=== PATIENT | male | born 1945 | race Caucasian/White ===

== ENCOUNTER 2017-03-26 02:06 | Emergency (ER) | payer MEDICARE, MEDICAID ==
[~2017-03-26] VITALS: Ht 175.3 cm; Wt 71.2 kg
--- NOTE | 2017-03-26 02:10 | NUR ---
TO BED 1 BIB PARAMEDICS C/O DIZZINESS. PT AAOX4 NO ACUTE DISTRESS NOTED, RESP EVEN AND UNLABORED. PLACE PT ON CARDIAC MONITORING, CONTINUOUS POX. PENDING ER MD HART.
--- NOTE | 2017-03-26 02:19 | NUR ---
LOUIS LEE AT BEDSIDE TO HAILEY RODRIGUEZ.
[2017-03-26] MEDS ORDERED: ONDANSETRON HCL/PF 4 MG/2 ML VIAL IVP ONE (02:30)
[2017-03-26] MEDS ORDERED: MECLIZINE HCL 25 MG TABLET PO ONE (02:30)
[2017-03-26] MEDS ORDERED: IV NS 0.9% 500 ML BAG IV ONE (02:30)
[2017-03-26] MEDS ORDERED: LORAZEPAM INJ 2 MG/ML VIAL IV ONE (02:30)
[2017-03-26] MEDS ORDERED: ONDANSETRON HCL/PF 4 MG/2 ML VIAL ONE (02:44)
[2017-03-26] MEDS ORDERED: LORAZEPAM INJ 2 MG/ML VIAL ONE (02:45)
[2017-03-26] MEDS ORDERED: MECLIZINE HCL 25 MG TABLET ONE (02:45)
[2017-03-26 02:48] LABS: BASOPHILS % (AUTO) 0.3 % (0.0-2.0); EOSINOPHILS # (AUTO) 0.1 /CMM (0.0-0.7); EOSINOPHILS % (AUTO) 2.2 % (0.0-6.0); HEMATOCRIT 36 % (39-51); HEMOGLOBIN 11.8 g/dL (13.5-17.5); LYMPHOCYTES # (AUTO) 1.6 /CMM (0.8-4.8); MEAN CORPUSCULAR HEMOGLOBIN 31 PG (26.0-33.0); MEAN CORPUSCULAR HGB CONC 33 g/dl (31.0-36.0); MEAN CORPUSCULAR VOLUME 93 fL (80-96); MONOCYTES # (AUTO) 0.7 /CMM (0.1-1.30); MONOCYTES % (AUTO) 11.6 % (2.0-12.0); NEUTROPHILS # (AUTO) 3.7 /CMM (1.8-8.9); NEUTROPHILS % (AUTO) 59.9 % (43.0-81.0); PLATELET COUNT (AUTO) 195 /CMM (150-450); RDW COEFFICIENT OF VARIATION 15.8 (11.5-15.0); RED BLOOD CELL COUNT(AUTO) 3.83 MIL/uL (4.5-6.0); WHITE BLOOD COUNT (AUTO) 6.1 K/uL (4.3-11.0)
--- NOTE | 2017-03-26 02:54 | NUR ---
PT MEDICATED BY RN PER ER MD ORDER.
[2017-03-26 03:07] LABS: TROPONIN I < 0.017 ng/mL (0.00-0.056)
[2017-03-26 03:08] LABS: ALANINE AMINOTRANSFERASE 34 U/L (12-78); ALBUMIN 3.7 g/dL (3.4-5.0); ALKALINE PHOSPHATASE 63 U/L (46-116); ASPARTATE AMINOTRANSFERASE 17 U/L (15-37); BILIRUBIN,TOTAL 0.3 mg/dL (0.2-1.0); CALCIUM, SERUM 9.4 mg/dL (8.5-10.1); CARBON DIOXIDE 27 mmol/L (21-32); CHLORIDE 104 mmol/L (98-107); CREATININE 0.8 mg/dL (0.6-1.3); GLUCOSE 126 mg/dL (74-106); POTASSIUM 3.8 mmol/L (3.5-5.1); SODIUM SERUM 142 mmol/L (136-145); TOTAL PROTEIN, SERUM 7.2 g/dL (6.4-8.2); UREA NITROGEN, BLOOD 19 mg/dL (7-18)
--- NOTE | 2017-03-26 04:13 | NUR ---
LOUIS LEE AT BEDSIDE TO RE-EVAL PT. ER MD SPOKE TO PT AND PT FAMILY.
--- NOTE | 2017-03-26 04:29 | NUR ---
URINE SAMPLE COLLECTED AND SENT TO LAB.
[2017-03-26 05:12] LABS: APPEARANCE,URINE CLEAR (CLEAR); BILIRUBIN,URINE NEGATIVE (NEGATIVE); BLOOD, URINE NEGATIVE Ery/uL (NEGATIVE); COLOR,URINE YELLOW (YELLOW); KETONES,URINE NEGATIVE (NEGATIVE); LEUKOCYTE ESTERASE ,URINE NEGATIVE (NEGATIVE); NITRITE, URINE NEGATIVE (NEGATIVE); PROTEIN,URINE NEGATIVE (NEGATIVE); UGLUCOSE NEGATIVE (NEGATIVE); UROBILINOGEN,URINE 0.2 EU/dL (0.2)
--- NOTE | 2017-03-26 05:56 | NUR ---
IV removed. Catheter intact and site benign. Pressure and 4x4 applied to site. No bleeding noted. Patient discharged to home in stable condition. Written and verbal after care instructions given. Patient verbalizes understanding of instruction. ambulatory with a steady gait noted. pt at bedside to take pt home.
[2017-03-26 05:57] VITALS: BP 113/61
== END 2017-03-26 05:58 | disposition home or self-care (01) ==
LOC: ER 02:09
DX: R42 Dizziness and giddiness (principal); R53.1 Weakness; C67.9 Malignant neoplasm of bladder, unspecified; I10 Essential (primary) hypertension; E11.9 Type 2 diabetes mellitus without complications
CPT/HCPCS: 36415; 80048; 80076; 81001; 84484; 85025; 93005; 96374; 96375; 99285; A4606; J2060; J2405; J7040; J8597; 81000-TC; Z7610

== ENCOUNTER → 2017-05-10 | Outpatient (CLI) | payer MEDICARE, OTHER | LOC: NM 08:06 | PROVIDERS: ATTEND Internal Medicine Cardiovascular Disease | DX: I25.10 Atherosclerotic heart disease of native coronary artery without angina pectoris (principal); Z95.5 Presence of coronary angioplasty implant and graft | CPT/HCPCS: 78452; A9502 ==

== ENCOUNTER 2018-10-26 10:09 | Outpatient (CLI) | payer MEDICARE, OTHER | END 2018-10-26 23:59 | disposition home or self-care (01) | LOC: CARD 10:09 | PROVIDERS: ATTEND Internal Medicine Cardiovascular Disease | DX: I70.293 Other atherosclerosis of native arteries of extremities, bilateral legs (principal); I10 Essential (primary) hypertension; E11.9 Type 2 diabetes mellitus without complications ==

== ENCOUNTER 2018-11-08 08:59 | Outpatient (CLI) | payer MEDICAID, MEDICARE ==
[2018-11-08 09:47] LABS: CALCIUM, SERUM 9.4 mg/dL (8.5-10.1); CARBON DIOXIDE 29 mmol/L (21-32); CHLORIDE 101 mmol/L (98-107); CREATININE 0.8 mg/dL (0.6-1.3); GLUCOSE 153 mg/dL (74-106); POTASSIUM 5.3 mmol/L (3.5-5.1); SODIUM SERUM 140 mmol/L (136-145); UREA NITROGEN, BLOOD 16 mg/dL (7-18)
[2018-11-08 09:48] LABS: BASOPHILS % (AUTO) 0.4 % (0.0-2.0); HEMATOCRIT 38 % (39-51); HEMOGLOBIN 12.6 g/dL (13.5-17.5); LYMPHOCYTES # (AUTO) 1.7 /CMM (0.8-4.8); LYMPHOCYTES % (AUTO) 31.8 % (20.0-44.0); MEAN CORPUSCULAR HGB CONC 33 g/dl (31.0-36.0); MEAN CORPUSCULAR VOLUME 95 fL (80-96); MONOCYTES # (AUTO) 0.6 /CMM (0.1-1.30); MONOCYTES % (AUTO) 11.3 % (2.0-12.0); NEUTROPHILS % (AUTO) 54.5 % (43.0-81.0); PLATELET COUNT (AUTO) 194 /CMM (150-450); RED BLOOD CELL COUNT(AUTO) 3.98 MIL/uL (4.5-6.0); WHITE BLOOD COUNT (AUTO) 5.5 K/uL (4.3-11.0)
[2018-11-08 10:05] LABS: CHOLESTEROL 155 mg/dL (<200); HDL CHOLESTEROL 38 mg/dL (40-60); LDL 82 mg/dL (0-99); THYROID STIMULATING HORMONE 1.358 uIU/mL (0.358-3.74); TRIGLYCERIDES 231 mg/dL (30-150)
[2018-11-08] MEDS ORDERED: IOHEXOL-350 100 ML VIAL IV ONE (10:58)
[2018-11-08] MEDS ORDERED: CT SWABBABLE VALVE TRANS SET 1 EA INFUS.SET MC ONE (10:59)
[2018-11-08] MEDS ORDERED: IV NS 0.9% 250 ML IV ONE (10:59)
== END 2018-11-08 23:59 | disposition home or self-care (01) ==
LOC: CT 08:59
PROVIDERS: ATTEND Internal Medicine Cardiovascular Disease
DX: I70.8 Atherosclerosis of other arteries (principal); I70.203 Unspecified atherosclerosis of native arteries of extremities, bilateral legs
CPT/HCPCS: 36415; 75635; 80048; 80061; 83036; 84443; 85025; J7050; Q9967

== ENCOUNTER 2018-11-15 13:45 | Outpatient (CLI) | payer MEDICARE, OTHER | END 2018-11-15 23:59 | disposition home or self-care (01) | LOC: VASLAB 13:45 | PROVIDERS: ATTEND Surgery Vascular Surgery | DX: I73.9 Peripheral vascular disease, unspecified (principal); I25.10 Atherosclerotic heart disease of native coronary artery without angina pectoris; I10 Essential (primary) hypertension; Z95.5 Presence of coronary angioplasty implant and graft; Z87.891 Personal history of nicotine dependence; E11.9 Type 2 diabetes mellitus without complications; Z79.84 Long term (current) use of oral hypoglycemic drugs; E78.5 Hyperlipidemia, unspecified | CPT/HCPCS: G0463 ==

== ENCOUNTER 2019-03-13 11:26 | Outpatient (CLI) | payer MEDICARE | END 2019-03-13 23:59 | disposition home or self-care (01) | LOC: CARD 11:26 | PROVIDERS: ATTEND Internal Medicine Cardiovascular Disease | DX: I65.23 Occlusion and stenosis of bilateral carotid arteries (principal); I10 Essential (primary) hypertension; E11.9 Type 2 diabetes mellitus without complications; Z85.51 Personal history of malignant neoplasm of bladder | CPT/HCPCS: 93880-TC ==

== ENCOUNTER 2019-04-07 12:03 | Outpatient (CLI) | payer MEDICARE, MEDICAID ==
[~2019-04-07] VITALS: Ht 160 cm; Wt 72.6 kg
[2019-04-07] MEDS ORDERED: IV NS 0.9% 250 ML IV ONE ×2 (12:40→13:47)
[2019-04-07] MEDS ORDERED: IOHEXOL-350 100 ML VIAL IV ONE ×2 (12:40→13:47)
[2019-04-07 13:00] LABS: CALCIUM, SERUM 9.2 mg/dL (8.5-10.1); CREATININE 0.8 mg/dL (0.6-1.3)
[2019-04-07] MEDS ORDERED: NITROGLYCERIN 4.9 GM SPRAY SL ONE (13:00)
[2019-04-07] MEDS ORDERED: METOPROLOL TARTRATE INJ 5 MG/5 ML AMPUL ONE ×2 (13:01→13:47)
[2019-04-07] MEDS: METOPROLOL TARTRATE INJ 5 MG/5 ML AMPUL IVP PRN ×4 (13:14→13:49)
[2019-04-07] MEDS ORDERED: NITROGLYCERIN 0.4 MG/TAB BOTTLE ONE (13:21)
[2019-04-07 13:49] VITALS: BP 134/65
== END 2019-04-07 23:59 | disposition home or self-care (01) ==
LOC: CT 12:03
PROVIDERS: ATTEND Internal Medicine Cardiovascular Disease
DX: I10 Essential (primary) hypertension (principal); I49.9 Cardiac arrhythmia, unspecified
CPT/HCPCS: 36415; 75574; 80048; J3490 ×2; J7050 ×2; Q9967 ×2

== ENCOUNTER 2019-04-11 09:44 | Outpatient (CLI) | payer MEDICARE, MEDICAID ==
[2019-04-11] MEDS ORDERED: REGADENOSON 0.4 MG/5 ML DISP.SYRIN IVP ONE (10:30)
== END 2019-04-11 23:59 | disposition home or self-care (01) ==
LOC: NM 09:44
PROVIDERS: ATTEND Internal Medicine Cardiovascular Disease
DX: M79.642 Pain in left hand (principal)
CPT/HCPCS: 78452; 93971; A9502; J2785

== ENCOUNTER 2019-04-18 13:15 | Outpatient (CLI) | payer MEDICARE, MEDICAID | END 2019-04-18 23:59 | disposition home or self-care (01) | LOC: VASLAB 13:15 | PROVIDERS: ATTEND Surgery Vascular Surgery | DX: I65.21 Occlusion and stenosis of right carotid artery (principal) | CPT/HCPCS: G0463 ==

== ENCOUNTER 2022-01-13 01:15 | Inpatient (IN) | payer MEDICARE, OTHER ==
[~2022-01-13] VITALS: Ht 160 cm; Wt 66.7 kg
[2022-01-13] MEDS ORDERED: ASPIRIN 325 MG TABLET ONE (01:45)
[2022-01-13] MEDS ORDERED: predniSONE 20 MG TABLET ONE (01:49)
--- NOTE | 2022-01-13 01:50 | NUR ---
ALONSO #18G S/K BLOOD COLLECTED AND SENT TO LAB
[2022-01-13] MEDS ORDERED: ALBUTEROL FS 2.5 MG/3 ML VIAL.NEB ONE (01:51)
[2022-01-13] MEDS ORDERED: IPRATROPIUM NEB FS 0.5 MG/2.5 ML AMPUL.NEB ONE (01:51)
--- NOTE | 2022-01-13 01:53 | NUR ---
RT AT BEDSIDE FOR BREATHING TX
--- NOTE | 2022-01-13 01:55 | NUR ---
EMT AT PT'S BEDSIDE FOR EKG
[2022-01-13] MEDS ORDERED: predniSONE 20 MG TABLET PO ONE (02:00)
[2022-01-13] MEDS ORDERED: ASPIRIN 325 MG TABLET PO ONE (02:00)
[2022-01-13] MEDS ORDERED: IPRATROPIUM NEB FS 0.5 MG/2.5 ML AMPUL.NEB NEB ONE (02:00)
[2022-01-13] MEDS ORDERED: ALBUTEROL FS 2.5 MG/3 ML VIAL.NEB NEB ONE (02:00)
--- NOTE | 2022-01-13 02:20 | NUR ---
POLITICAL SCIENCE FACULTY MEMBER AT PT'S BEDSIDE
[2022-01-13 02:23] LABS: BASOPHILS % (AUTO) 0.2 % (0.0-2.0); EOSINOPHILS % (AUTO) 1.4 % (0.0-6.0); HEMATOCRIT 35 % (39-51); HEMOGLOBIN 11.4 g/dL (13.5-17.5); LYMPHOCYTES # (AUTO) 1.6 K/uL (0.8-4.8); LYMPHOCYTES % (AUTO) 26.7 % (20.0-44.0); MEAN CORPUSCULAR HGB CONC 33 g/dl (31.0-36.0); MEAN CORPUSCULAR VOLUME 95 fL (80-96); MONOCYTES # (AUTO) 0.7 K/uL (0.1-1.30); MONOCYTES % (AUTO) 12.1 % (2.0-12.0); NEUTROPHILS # (AUTO) 3.6 K/uL (1.8-8.9); NEUTROPHILS % (AUTO) 59.6 % (43.0-81.0); PLATELET COUNT (AUTO) 255 K/uL (150-450); RED BLOOD CELL COUNT(AUTO) 3.64 MIL/uL (4.5-6.0)
[2022-01-13 02:35] LABS: CALCIUM, SERUM 9.3 mg/dL (8.5-10.1); CARBON DIOXIDE 24 mmol/L (21-32); CHLORIDE 91 mmol/L (98-107); CREATININE 0.8 mg/dL (0.6-1.3); GLUCOSE 168 mg/dL (74-106); POTASSIUM 3.8 mmol/L (3.5-5.1); SODIUM SERUM 122 mmol/L (136-145); UREA NITROGEN, BLOOD 12 mg/dL (7-18)
--- NOTE | 2022-01-13 03:19 | NUR ---
COVID ANTIGEN SWAB COLLECTED AND SENT TO LAB
[2022-01-13] MEDS ORDERED: ONDANSETRON HCL/PF 4 MG/2 ML VIAL IVP PRN (04:00)
[2022-01-13] MEDS ORDERED: MAGNESIUM HYDROXIDE 30 ML UDC PO PRN (04:00)
[2022-01-13] MEDS ORDERED: MAG HYDROX/AL HYDROX/SIMETH 30 ML UDC PO PRN (04:00)
[2022-01-13] MEDS ORDERED: Z GUARD REMEDY 4 OZ OINT TP PRN (04:00)
[2022-01-13] MEDS ORDERED: IPRATROPIUM NEB FS 0.5 MG/2.5 ML AMPUL.NEB NEB PRN (04:00)
[2022-01-13] MEDS ORDERED: ALBUTEROL FS 2.5 MG/3 ML VIAL.NEB NEB PRN (04:00)
[2022-01-13] MEDS ORDERED: ZOLPIDEM TARTRATE 5 MG TABLET PO PRN (04:00)
--- NOTE | 2022-01-13 05:26 | NUR ---
TOTAL URINE OUTPUT 1550ML VIA URINAL
--- NOTE | 2022-01-13 07:43 | NUR ---
GPT BED 323-2
--- NOTE | 2022-01-13 07:57 | NUR ---
REPORT GIVEN TO DESHAWN FLOREZ OF TELE UNIT
--- NOTE | 2022-01-13 08:15 | NUR ---
RN NOTE PATIENT WAS TRANSFERRED FROM ER PATIENT CAME TO [facility] VIA GURNEY WITH NO SIGNS OF DISTRESS, REPORT RECEIVED FROM ER NURSE. V/S TAKEN, STABLE AND RECORDED. SKIN ASSESSMENT DONE, BRUISE ON RIGHT HAND, PICTURE TAKEN. BELONGING LIST CHECKED. PATIENT ORIENTED TO ROOM SET UP AND EDUCATED PATIENT ON THE USE OF CALL LIGHT. PATIENT AWAKE IN BED RESTING. A/O X4. NO PAIN NOTED AT THIS TIME. ON 2L OXYGEN VIA NC, NO DISTRESS OR SHORTNESS OF BREATH NOTED. IV ACCESS LAC #18G, INTACT, PATENT AND FLUSHING WELL. FALL AND SAFETY MEASURES IN PLACE, BED ALARM ON, BED IN LOW AND LOCK POSITION, CALL LIGHT AND TABLE WITHIN EASY REACH, SIDE RAILS UP X2. WILL CONTINUE TO MONITOR.
[2022-01-13] MEDS: LEVOFLOXACIN 500 MG /D5W 100ML 500 MG in PREMIX 1 EA IV SCH (09:33)
[2022-01-13] MEDS ORDERED: ATOR40TA PO (10:27)
[2022-01-13] MEDS ORDERED: ERGO500093 PO (10:27)
[2022-01-13] MEDS ORDERED: PANT40TA49 PO (10:27)
[2022-01-13] MEDS ORDERED: EZET10TA32 PO (10:27)
[2022-01-13] MEDS ORDERED: AMLO-212 PO (10:27)
[2022-01-13] MEDS ORDERED: ASPI-1420 PO (10:27)
[2022-01-13] MEDS ORDERED: METF-440 PO (10:27)
[2022-01-13] MEDS ORDERED: DUTA0.5C37 PO (10:27)
[2022-01-13] MEDS ORDERED: PHEN-894 PO (10:27)
[2022-01-13] MEDS ORDERED: LINA290C PO (10:27)
[2022-01-13] MEDS ORDERED: UMEC1BLS IH (10:27)
[2022-01-13] MEDS ORDERED: BETH50TA2 PO (10:27)
[2022-01-13] MEDS ORDERED: ALBU18HF2 INH (10:27)
[2022-01-13] MEDS ORDERED: TAMS-12 PO (10:27)
[2022-01-13] MEDS ORDERED: METO50TA7 PO (10:27)
[2022-01-13] MEDS ORDERED: BENA40TA8 PO (10:27)
[2022-01-13 12:29] VITALS: BP 117/46
[2022-01-13] MEDS: methylPREDNISolone SOD SUCC 40 MG/ML VIAL IV SCH ×3 (12:52→21:04)
[2022-01-13] MEDS: METFORMIN 500 MG TABLET PO SCH ×2 (12:52→17:09)
[2022-01-13] MEDS: ACETAMINOPHEN 325 MG TABLET PO PRN (12:59)
[2022-01-13] MEDS: BETHANECHOL CHLORIDE (25 MG) 25 MG TABLET PO SCH ×2 (13:04→17:09)
[2022-01-13] MEDS: BLOOD SUGAR DIAGNOSTIC 1 EACH STRIP VI SCH ×3 (13:47→21:14)
[2022-01-13] MEDS ORDERED: DEXTROSE 50%-WATER 50 ML DISP.SYRIN IV PRN (14:00)
[2022-01-13] MEDS: INSULIN REGULAR, HUMAN 100 UNIT/ML 3 ML VIAL SQ PRN ×2 (14:47→17:11)
[2022-01-13 16:09] VITALS: BP 151/76
[2022-01-13] MEDS: ATORVASTATIN 40 MG TABLET PO SCH (17:09)
--- NOTE | 2022-01-13 18:48 | NUR ---
RN CLOSING NOTE PATIENT AWAKE IN BED RESTING. A/O X4. NO PAIN NOTED AT THIS TIME. ON 2L OXYGEN VIA NC, NO DISTRESS OR SHORTNESS OF BREATH NOTED. IV ACCESS LAC #18G, INTACT, PATENT AND FLUSHING WELL. SCHEDULE MEDICATIONS ADMINISTERED. PATIENT HAVE EXTERNAL INVESTIGATOR NARCOTICS WITH CURRENT READING OF SR WITH PVC AND PAC, HR OF 90, NO CARDIAC DISTRESS NOTED. FALL AND SAFETY MEASURES IN PLACE, BED ALARM ON, BED IN LOW AND LOCK POSITION, CALL LIGHT AND TABLE WITHIN EASY REACH, SIDE RAILS UP X2. WILL ENDORSE TO REGISTERED NURSE CARDIAC TELEMETRY.
--- NOTE | 2022-01-13 19:30 | NUR ---
6TH GRADE TEACHER OPENING NOTES RECEIVED PATIENT LYING IN BED AWAKE. A/O X4. UPPER SORBIAN SPEAKING BUT UNDERSTANDS SOME FRENCH. BREATHING EVEN AND NON-LABORED. ON O2 AT 2LPM VIA NASAL CANULA. NOT IN APPARENT DISTRESS. DENIES PAIN AT THIS TIME. ON TELE MONITOR READING SINUS RHYTHM WITH PVC AT 97 BPM. HAS LEFT ANTECUBITAL IV ACCESS #18G WITH NS RUNNING AT 75 ML/HR. NO S/S OF INFILTRATION NOTED. USES URINAL BOTTLE TO PEE. SAFETY PRECAUTIONS IN PLACE: BED LOW AND LOCKED, SIDE RAILS UP X2, CALL LIGHT WITHIN REACH. WILL CONTINUE POC.
[2022-01-13 20:00] VITALS: BP 154/70
[2022-01-13] MEDS: IPRATROPIUM NEB FS 0.5 MG/2.5 ML AMPUL.NEB NEB SCH (20:39)
[2022-01-13] MEDS: ALBUTEROL FS 2.5 MG/3 ML VIAL.NEB NEB SCH (20:40)
[2022-01-13 20:44] LABS: BILIRUBIN,URINE NEGATIVE (NEGATIVE); LEUKOCYTE ESTERASE ,URINE NEGATIVE (NEGATIVE); NITRITE, URINE NEGATIVE (NEGATIVE); PH,URINE 5.5 (5.0-8.0); PROTEIN,URINE NEGATIVE (NEGATIVE); UGLUCOSE 500 MG/DL mg/dL (NEGATIVE); UROBILINOGEN,URINE 0.2 EU/dL (0.2)
[2022-01-13 20:54] LABS: BACTERIA,URINE None seen /HPF (None Seen); COLOR,URINE STRAW (YELLOW); RBC,URINE 0-2 /HPF (0-2); SQUAMOUS EPITHELIAL CELL,UR Rare /HPF (None Seen); WBC,URINE 0-2 /HPF (0-3)
[2022-01-13] MEDS: TAMSULOSIN 0.4 MG CAP.SR.24H PO SCH (21:03)
[2022-01-13] MEDS: METOPROLOL SUCCINATE 50 MG TAB.SR.24H PO SCH (21:04)
[2022-01-13] MEDS: *INSULIN REGULAR(HUMULIN R)HUM 100 UNIT/ML VIAL SQ PRN (21:18)
[2022-01-14] VITALS: BP 114/60
[2022-01-14] MEDS: IV NS 0.9% 1,000 ML IV PRN ×2 (01:04→20:08)
[2022-01-14] MEDS: IPRATROPIUM NEB FS 0.5 MG/2.5 ML AMPUL.NEB NEB SCH ×4 (01:56→20:52)
[2022-01-14] MEDS: ALBUTEROL FS 2.5 MG/3 ML VIAL.NEB NEB SCH ×4 (01:56→20:52)
[2022-01-14 04:00] VITALS: BP 118/67
[2022-01-14] MEDS: methylPREDNISolone SOD SUCC 40 MG/ML VIAL IV SCH ×3 (04:26→20:07)
[2022-01-14] MEDS: PANTOPRAZOLE 40 MG TABLET.DR PO SCH (06:53)
[2022-01-14] MEDS: INSULIN REGULAR, HUMAN 100 UNIT/ML 3 ML VIAL SQ PRN (06:56)
[2022-01-14 06:57] LABS: CALCIUM, SERUM 9.3 mg/dL (8.5-10.1); CARBON DIOXIDE 25 mmol/L (21-32); CHLORIDE 100 mmol/L (98-107); CREATININE 0.8 mg/dL (0.6-1.3); GLUCOSE 205 mg/dL (74-106); MAGNESIUM 1.8 mg/dL (1.8-2.4); PHOSPHORUS 4.1 mg/dL (2.5-4.9); POTASSIUM 4.4 mmol/L (3.5-5.1); SODIUM SERUM 134 mmol/L (136-145); UREA NITROGEN, BLOOD 18 mg/dL (7-18)
--- NOTE | 2022-01-14 07:15 | NUR ---
COMMUTATOR TESTER CLOSING NOTES PATIENT LYING IN BED ASLEEP, EASY TO AROUSE. A/O X4, [place]. WEARS A HEARING AID IN THE RIGHT EAR. NO SOB OR NOTED. ON O2 AT 2LPM VIA NASAL CANULA. NO ACUTE DISTRESS NOTED. NO PAIN OR DISCOMFORT VERBALIZED. AFEBRILE. ON TELE MONITOR READING SINUS RHYTHM WITH PVC AT 85 BPM. HAS LEFT ANTECUBITAL IV ACCESS #18G WITH NS RUNNING AT 75 ML/HR. INTACT, PATENT AND FLUSHING. URINE CLEAR, YELLOW AND NO SEDIMENTS NOTED. AMBULATORY WITH STEADY GAIT. ALL DUE MEDS GIVEN AND NEEDS ATTENDED. SAFETY PRECAUTIONS MAINTAINED. WILL ENDORSE TO NEXT SHIFT FOR DEVORA.
[2022-01-14] MEDS: BLOOD SUGAR DIAGNOSTIC 1 EACH STRIP VI SCH ×4 (07:30→21:26)
--- NOTE | 2022-01-14 07:30 | NUR ---
PLY SPLICER OPENING NOTES RECEIVED PATIENT IN BED AWAKE. PATIENT IS A/O X4. FRISIAN SPEAKER. ON O2 VIA NASAL CANNULA AT 2LPM TOLERATING WELL. NO SOB NOTED. NO RESPIRATORY DISTRESS NOTED. NO PAIN NOTED. ON TELE MONITOR READING SINUS RHYTHM WITH PVC . IV ACCESS ON LEFT AC #18G INTACT RUNNING NS AT 75 ML/HR. NO S/S OF INFILTRATION NOTED. AMBULATORY. BRP. ALL SAFETY PRECAUTIONS IN PLACE: BED IN LOW AND LOCKED POSITION.SIDE RAILS UP X2, CALL LIGHT WITHIN REACH. WILL CONTINUE TO MONITOR.
[2022-01-14] MEDS: METFORMIN 500 MG TABLET PO SCH ×3 (08:06→16:38)
[2022-01-14] MEDS: BENAZEPRIL HCL 20 MG TABLET PO SCH (08:06)
[2022-01-14] MEDS: AMLODIPINE BESYLATE 5 MG TABLET PO SCH (08:07)
[2022-01-14] MEDS: EZETIMIBE 10 MG TABLET PO SCH (08:07)
[2022-01-14] MEDS: DUTASTERIDE (0.5 MG) 0.5 MG CAPSULE PO SCH (08:07)
[2022-01-14] MEDS: METOPROLOL SUCCINATE 50 MG TAB.SR.24H PO SCH ×2 (08:07→20:17)
[2022-01-14] MEDS: BETHANECHOL CHLORIDE (25 MG) 25 MG TABLET PO SCH ×3 (08:08→16:38)
[2022-01-14] MEDS: ASPIRIN EC 81 MG TABLET.DR PO SCH (08:14)
[2022-01-14] MEDS: LEVOFLOXACIN 500 MG /D5W 100ML 500 MG in PREMIX 1 EA IV SCH (08:14)
[2022-01-14 08:53] LABS: HEMATOCRIT 35 % (39-51); HEMOGLOBIN 11.7 g/dL (13.5-17.5); LYMPHOCYTES # (AUTO) 0.7 K/uL (0.8-4.8); LYMPHOCYTES % (AUTO) 6.8 % (20.0-44.0); MEAN CORPUSCULAR HGB CONC 33 g/dl (31.0-36.0); MEAN CORPUSCULAR VOLUME 95 fL (80-96); MONOCYTES # (AUTO) 0.5 K/uL (0.1-1.30); MONOCYTES % (AUTO) 4.6 % (2.0-12.0); NEUTROPHILS # (AUTO) 9.4 K/uL (1.8-8.9); NEUTROPHILS % (AUTO) 88.6 % (43.0-81.0); PLATELET COUNT (AUTO) 264 K/uL (150-450); WHITE BLOOD COUNT (AUTO) 10.6 K/uL (4.3-11.0)
[2022-01-14] MEDS ORDERED: Medication Not On Formulary EA (Umeclidinium Brm/Vilanterol Tr (Anoro Ellipta 62.5-25 Mc IH SCH (09:00)
[2022-01-14] MEDS ORDERED: Medication Not On Formulary EA (Linaclotide (Linzess) 290 MCG) PO SCH (09:00)
[2022-01-14] MEDS: *INSULIN REGULAR(HUMULIN R)HUM 100 UNIT/ML VIAL SQ PRN ×3 (11:47→21:30)
[2022-01-14] MEDS ORDERED: methylPREDNISolone SOD SUCC 40 MG/ML VIAL IV SCH (14:00)
[2022-01-14 17:00] VITALS: BP 134/63
[2022-01-14] MEDS: ATORVASTATIN 40 MG TABLET PO SCH (17:08)
--- NOTE | 2022-01-14 18:49 | NUR ---
MANAGER EPIC CLOSING NOTES PATIENT IN BED AWAKE. PATIENT IS A/O X4. MAORI SPEAKER. ON O2 VIA NASAL CANNULA AT 2LPM TOLERATING WELL. NO SOB NOTED. NO RESPIRATORY DISTRESS NOTED. NO PAIN NOTED. ON TELE MONITOR READING SINUS RHYTHM 88 WITH PVC . IV ACCESS ON LEFT AC #18G INTACT RUNNING NS AT 75 ML/HR. NO S/S OF INFILTRATION NOTED. AMBULATORY. BRP. ALL SAFETY PRECAUTIONS IN PLACE:ALL DUE MEDS GIVEN ORDERED. BED IN LOW AND LOCKED POSITION.SIDE RAILS UP X2, CALL LIGHT WITHIN REACH. WILL ENDORSE FOR DEVORA.
--- NOTE | 2022-01-14 19:30 | NUR ---
SECURITY COMPLIANCE ENGINEER OPENING NOTES RECEIVED PATIENT LYING IN BED COMFORTABLY. A/O X4. BREATHING EVEN AND NON-LABORED. ON O2 AT 2LPM VIA NASAL CANULA. NOT IN APPARENT DISTRESS. C/O MILD HEADACHE. ON TELE MONITOR READING SINUS RHYTHM WITH PVC AT 85 BPM. HAS LEFT ANTECUBITAL IV ACCESS #18G WITH NS RUNNING AT 75 ML/HR. NO S/S OF INFILTRATION NOTED. CLEANED AND ORGANIZED AREA ACCORDINGLY. SAFETY PRECAUTIONS IN PLACE: BED LOW AND LOCKED, SIDE RAILS UP X2, CALL LIGHT WITHIN REACH. WILL CONTINUE POC.
[2022-01-14 20:00] VITALS: BP 136/75
[2022-01-14] MEDS: ACETAMINOPHEN 325 MG TABLET PO PRN (20:07)
--- NOTE | 2022-01-14 20:10 | NUR ---
ALIGNMENT SPECIALIST NOTES PATIENT C/O MILD HEADACHE AND REQUESTED FOR TYLENOL. ADMINISTERED PRN AND TOLERATED WELL.
[2022-01-14] MEDS: TAMSULOSIN 0.4 MG CAP.SR.24H PO SCH (21:21)
[2022-01-15] VITALS: BP 104/49
[2022-01-15] MEDS: ALBUTEROL FS 2.5 MG/3 ML VIAL.NEB NEB SCH ×2 (02:16→07:35)
[2022-01-15] MEDS: IPRATROPIUM NEB FS 0.5 MG/2.5 ML AMPUL.NEB NEB SCH ×2 (02:16→07:35)
[2022-01-15 04:00] VITALS: BP 133/64
[2022-01-15] MEDS: BLOOD SUGAR DIAGNOSTIC 1 EACH STRIP VI SCH ×2 (06:45→12:00)
[2022-01-15] MEDS: INSULIN REGULAR, HUMAN 100 UNIT/ML 3 ML VIAL SQ PRN (06:46)
[2022-01-15 06:57] LABS: HEMATOCRIT 33 % (39-51); HEMOGLOBIN 11.2 g/dL (13.5-17.5); LYMPHOCYTES # (AUTO) 0.7 K/uL (0.8-4.8); LYMPHOCYTES % (AUTO) 6.7 % (20.0-44.0); MEAN CORPUSCULAR HGB CONC 34 g/dl (31.0-36.0); MEAN CORPUSCULAR VOLUME 96 fL (80-96); MONOCYTES # (AUTO) 0.9 K/uL (0.1-1.30); MONOCYTES % (AUTO) 8.2 % (2.0-12.0); NEUTROPHILS # (AUTO) 9.2 K/uL (1.8-8.9); NEUTROPHILS % (AUTO) 85.1 % (43.0-81.0); PLATELET COUNT (AUTO) 271 K/uL (150-450); RED BLOOD CELL COUNT(AUTO) 3.46 MIL/uL (4.5-6.0); WHITE BLOOD COUNT (AUTO) 10.9 K/uL (4.3-11.0)
[2022-01-15 07:00] VITALS: BP 160/81
--- NOTE | 2022-01-15 07:00 | NUR ---
PRUNE WASHER CLOSING NOTES PATIENT LYING IN BED AWAKE. A/O X4, [place]. NO SOB OR NOTED. ON O2 AT 2 LPM VIA NASAL CANULA. NOT IN ACUTE DISTRESS. NO C/O PAIN OR DISCOMFORT. AFEBRILE. ON TELE MONITOR READING SINUS TACHYCARDIA WITH PVC AT 108 BPM. HAS LEFT ANTECUBITAL IV ACCESS #18G WITH NS RUNNING AT 75 ML/HR. INTACT, PATENT AND FLUSHING. ALL DUE MEDS GIVEN AND NEEDS ATTENDED. SAFETY PRECAUTIONS MAINTAINED. WILL ENDORSE TO NEXT SHIFT FOR DEVORA.
--- NOTE | 2022-01-15 07:30 | NUR ---
RN OPENING NOTE- PATIENT IN BED AWAKE. A/O X4, [place]. ON O2 AT 2 LPM VIA NASAL CANULA. NO DYSPNEA, CHEST W DIMINISHED BREATH SOUNDS ON AUSCULTATION, NO WHEEZING, NO RHONCHI, NO RALES, NOT IN ACUTE DISTRESS. NO C/O PAIN OR DISCOMFORT. AFEBRILE. ON TELE MONITOR READING SINUS TACHYCARDIA WITH PVC AT 101 . HAS LEFT ANTECUBITAL IV ACCESS #18G WITH NS RUNNING AT 75 ML/HR. INTACT, PATENT AND FLUSHING. . SAFETY PRECAUTIONS MAINTAINED. MONITOR / ASSIST
[2022-01-15 07:37] LABS: CALCIUM, SERUM 9.3 mg/dL (8.5-10.1); CREATININE 0.8 mg/dL (0.6-1.3); POTASSIUM 4.6 mmol/L (3.5-5.1)
[2022-01-15] MEDS: PANTOPRAZOLE 40 MG TABLET.DR PO SCH (08:38)
[2022-01-15] MEDS: EZETIMIBE 10 MG TABLET PO SCH (08:39)
[2022-01-15] MEDS: BETHANECHOL CHLORIDE (25 MG) 25 MG TABLET PO SCH (08:39)
[2022-01-15] MEDS: BENAZEPRIL HCL 20 MG TABLET PO SCH (08:40)
[2022-01-15] MEDS: AMLODIPINE BESYLATE 5 MG TABLET PO SCH (08:40)
[2022-01-15] MEDS: ASPIRIN EC 81 MG TABLET.DR PO SCH (08:40)
[2022-01-15] MEDS: DUTASTERIDE (0.5 MG) 0.5 MG CAPSULE PO SCH (08:40)
[2022-01-15] MEDS: METFORMIN 500 MG TABLET PO SCH (08:40)
[2022-01-15] MEDS: METOPROLOL SUCCINATE 50 MG TAB.SR.24H PO SCH (08:41)
[2022-01-15] MEDS: methylPREDNISolone SOD SUCC 40 MG/ML VIAL IV SCH (08:41)
[2022-01-15] MEDS ORDERED: LEVOFLOXACIN (250MG) 250 MG TABLET PO SCH (09:00)
[2022-01-15] MEDS ORDERED: PRED50TA PO (11:00)
[2022-01-15] MEDS ORDERED: LEVO250T59 PO (11:00)
[2022-01-15 12:00] VITALS: BP 121/84
--- NOTE | 2022-01-15 12:55 | NUR ---
RN DC NOTE- PT DC HOME INTO CARE OF FAMILY. PT IS AOX4, VS STABLE, NO PAIN NOTED. PT IV SITE REMOVED, ID WRISTBAND REMOVED AND AFTERCARE AND MD ORDERS REVIEWED W FAMILY AND PT. ESCORTED OFF UNIT BY RN.
[2022-01-17] MEDS ORDERED: ERGOCALCIFEROL (VITAMIN D 2) 50,000 UNIT CAPSULE PO SCH (13:00)
== END 2022-01-15 13:00 | disposition home health service (06) | DRG 202 ==
LOC: ER 01:17 → TELE 07:45
PROVIDERS: ADMIT Internal Medicine; ATTEND Internal Medicine
DX: J45.901 Unspecified asthma with (acute) exacerbation (principal); J96.01 Acute respiratory failure with hypoxia; E87.1 Hypo-osmolality and hyponatremia; Z20.822 Contact with and (suspected) exposure to COVID-19; E11.9 Type 2 diabetes mellitus without complications; I10 Essential (primary) hypertension; Z87.891 Personal history of nicotine dependence; Z79.51 Long term (current) use of inhaled steroids; Z79.82 Long term (current) use of aspirin; Z79.84 Long term (current) use of oral hypoglycemic drugs; E78.5 Hyperlipidemia, unspecified; E86.1 Hypovolemia; N40.0 Benign prostatic hyperplasia without lower urinary tract symptoms; Z85.51 Personal history of malignant neoplasm of bladder
CPT/HCPCS: 36415; 71045-TC; 80048-TC; 81001; 82962-TC; 83735-TC; 84100-TC; 84484-TC; 85025-TC; 87081-TC; 94799-TC; 97112-TC; 97116-TC; 97530-TC; A4216; C9803; G0378; J1815; J1956; J2920; J7030